=== PATIENT | male | born 1960 | race Caucasian/White ===

== ENCOUNTER 2018-10-22 14:12 | Emergency (ER) | payer BC, OTHER ==
--- NOTE | 2018-10-22 15:34 | EDM.PDOC ---
ED HPI GENERAL MEDICAL PROBLEM - General Chief Complaint: Upper Extremity Injury/Pain Stated Complaint: FELL ON RT ARM Time Seen by Provider: 10/22/18 14:27 Source of Information: Reports: Patient, RN Notes Reviewed - History of Present Illness INITIAL COMMENTS - FREE TEXT/NARRATIVE: 58-year-old male slipped on the ice a short time ago injuring his right wrist. He thinks he probably came down on his right hand is a slipped and fell to the side and backwards. He has continued pain distal forearm and right wrist, worse with any type of motion. No other pain or injury from this fall. Right Arm Pain Score (Numeric/FACES): 8 - Related Data Allergies Allergy/AdvReac Type Severity Reaction Status Date / Time Sulfa (Sulfonamide Allergy Cannot Verified 10/22/18 14:24 Antibiotics) Remember Home Meds: Home Meds Multivitamin [Multivitamins] 1 tab PO DAILY 10/22/18 [History] Past Medical History - Past Surgical History GI Surgical History: Reports: Hernia Repair/Other Musculoskeletal Surgical History: Reports: Other (See Below) Other Musculoskeletal Surgeries/Procedures:: knee surgery Social & Family History - Tobacco Use Smoking Status *Q: Current Every Day Smoker Years of Tobacco use: 25 Packs/Tins Daily: 1 - Caffeine Use Caffeine Use: Reports: Coffee - Recreational Drug Use Recreational Drug Use: No Review of Systems - Review of Systems Review Of Systems: See Below Respiratory: Reports: No Symptoms Cardiovascular: Denies: Chest Pain GI/Abdominal: Denies: Abdominal Pain, Nausea, Vomiting Musculoskeletal: Denies: Neck Pain, Back Pain Neurological: Reports: No Symptoms ED EXAM, GENERAL - Physical Exam Exam: See Below General Appearance: Alert, Mild Distress Head: Atraumatic Neck: Supple Respiratory/Chest: No Respiratory Distress, Lungs Clear Back Exam: Normal Inspection Extremities: Joint Swelling (Mild swelling, moderate tenderness right distal forearm, right wrist), Other (Pain with any type of motion right wrist) Neurological: Alert, Oriented, No Motor/Sensory Deficits Skin Exam: Warm, Dry, Normal Color ED TRAUMA EXTREMITY PROCEDURES - Splinting Right Upper Extremity Splint Site: Right short arm Pre-Procedure NV Status: Normal Post-Procedure NV Status: Normal Splint Design: Volar Applied & Form Fitted By: Provider Complications: No Course - Vital Signs Last Recorded V/S: Last Vital Signs Temp 99.4 F 10/22/18 14:21 Pulse 87 10/22/18 14:21 Resp 16 10/22/18 14:21 BP 155/93 H 10/22/18 14:21 Pulse Ox 95 10/22/18 14:21 - Orders/Labs/Meds Orders: Active Orders 24 hr Category Date Time Status Wrist Comp Min 3V Rt [CR] Stat Exams 10/22/18 14:44 Taken - Re-Assessments/Exams Free Text/Narrative Re-Assessment/Exam: 10/22/18 19:23 X-rays show nondisplaced fracture distal radius, no ulnar fracture visible Departure - Departure Time of Disposition: 15:32 Disposition: Home, Self-Care 01 Condition: Fair Clinical Impression: Fracture of radius Qualifiers: Encounter type: initial encounter Radius location: distal Fracture type: closed Fracture morphology: unspecified fracture morphology - Discharge Information Instructions: Radial Fracture Referrals: PCP,None [Primary Care Provider] - Forms: ED Department Discharge Additional Instructions: Fiberglas splint right wrist and forearm, keep hand and wrist elevated is much as possible, avoid further injury, ice packs and elevation as needed to help keep swelling down, Tylenol or ibuprofen if needed for discomfort. See Dr. Garcia, orthopedist early next week, call [phone] Wednesday morning for appointment . - My Orders Last 24 Hours: My Active Orders 10/22/18 14:44 Wrist Comp Min 3V Rt [CR] Stat - Assessment/Plan Last 24 Hours: My Active Orders 10/22/18 14:44 Wrist Comp Min 3V Rt [CR] Stat
--- NOTE | 2018-10-23 08:48 | CR ---
Right wrist: Four views of the right wrist were obtained. Comparison: No prior wrist exam. Fracture is identified within the distal radius within the metaphysis. Minimal displacement is seen of a posterior fragment by about 1.3 mm. Alignment is otherwise anatomic. No additional fracture or other bony abnormality is seen. Soft tissue swelling is seen. Impression: 1. Distal metaphyseal radial fracture as described above. Diagnostic code #3
== END 2018-10-22 15:50 | disposition home or self-care (01) ==
LOC: JD.ED 14:12
DX: S52.501A Unspecified fracture of the lower end of right radius, initial encounter for closed fracture (principal); W00.0XXA Fall on same level due to ice and snow, initial encounter; Z88.2 Allergy status to sulfonamides; F17.210 Nicotine dependence, cigarettes, uncomplicated
CPT/HCPCS: 29125; 73110-26-RT; 73110-RT; 99282; 99283-25